=== PATIENT | male | born 1970 | race African-American/Black ===

== ENCOUNTER 2021-11-22 09:16 | Inpatient (IN) | payer SELFPAY ==
[~2021-11-22] VITALS: Ht 180.3 cm; Wt 101.2 kg
[~2021-11-22 09:16] MED LIST: CARAFATE 1GM1 G PO; NORCO 325 MG-51 TAB PO; PERCOCET 325 MG1 TAB PO; PHENERGAN 25 TA25 MG PO; ROXICODONE 55 MG/TAB PO
[2021-11-22 09:43] LABS: BASO % 0.4 % (0.0-2.0); EOS # 0.2 K/mm3 (0.0-0.7); EOS % 2.3 % (0.0-4.0); GRAN # 5.3 K/mm3 (1.4-6.5); GRAN % 63.6 % (42.2-75.2); HEMATOCRIT 45.6 % (42.0-52.0); HEMOGLOBIN 14.7 g/dl (13.5-18.0); LYMPH % 24.5 % (20.0-51.0); MEAN CELL VOLUME 89 fl (80.0-100.0); MEAN CORPUSCULAR HEMOGLOBIN 29 pg (27-31); MEAN CORPUSCULAR HGB CONC 32 g/dl (33.0-37.0); MEAN PLATELET VOLUME 9.3 fl (7.4-10.4); MONO # 0.8 K/mm3 (0.1-0.6); PLATELET COUNT 365 K/mm3 (130-400); RED BLOOD COUNT 5.14 M/mm3 (4.20-5.60); REDCELL DISTRIBUTION WIDTH-CV 14.3 % (11.5-14.5)
[2021-11-22 09:52] LABS: INR 1.3 (0.8-3.0); PROTHROMBIN TIME 14.1 SECONDS (9.7-12.8)
[2021-11-22 09:55] LABS: PARTIAL THROMBOPLASTIN TIME 33.2 SECONDS (26.0-37.0)
[2021-11-22 09:59] LABS: ALBUMIN 4.1 gm/dL (3.5-5.0); BILIRUBIN,TOTAL 0.4 mg/dL (0.2-1.2); C-REACTIVE PROTEIN 1.1 mg/dL (0.00-0.50); CALCIUM 8.8 mg/dL (8.4-10.2); CREATININE, serum 1.07 mg/dL (0.72-1.25); TOTAL PROTEIN 8.1 gm/dL (6.2-8.1)
[2021-11-22 10:05] LABS: TROPONIN-I 0.019 ng/mL (0.00-0.033)
[2021-11-22 11:31] LABS: COLLECTION METHOD CLEAN CATCH
[2021-11-22 11:37] LABS: MUCOUS Present (NOT PRESENT); PH 7 (5-8); SQUAMOUS EPITHELIAL None Seen /hpf (0-10); URINE APPEARANCE Clear (CLEAR/HAZY); URINE BACTERIA None Seen /hpf (NONE SEEN); URINE BILIRUBIN Negative (NEGATIVE); URINE BLOOD Negative (NEGATIVE); URINE COLOR Yellow (YELLOW); URINE GLUCOSE Negative (NEGATIVE); URINE KETONE Negative (NEGATIVE); URINE LEUKOCYTE ESTERASE Negative (NEGATIVE); URINE NITRATE Negative (NEGATIVE); URINE PROTEIN(semi-quant) Negative (NEGATIVE); URINE UROBILINOGEN Negative (NEGATIVE)
[2021-11-22 20:00] VITALS: BP 135/84; PULSE 82; TEMP 98.5
[2021-11-23] VITALS (509 sets, daily range): BP systolic 99–138; BP diastolic 57–100; PULSE 48–114; TEMP 98.3–99.4; O2SAT 36–100
--- NOTE | 2021-11-23 00:06 | NUR ---
NOTED IV HEPARIN RUNNNING AT 10ML/HR OR 1000 UNITS/HR, AND NITRO RUNNING AT 10MG/HR (3ML/HR)
[2021-11-23 06:39] LABS: CALCIUM 8.3 mg/dL (8.4-10.2); CREATININE, serum 0.89 mg/dL (0.72-1.25); MAGNESIUM 1.8 mg/dL (1.6-2.6); POTASSIUM 3.8 mmol/L (3.5-4.5)
[2021-11-23 06:50] LABS: TROPONIN-I 0.213 ng/mL (0.00-0.033)
--- NOTE | 2021-11-23 08:40 | NUR ---
SPOKE WITH DR. POP AND PT THIS AM. PLAN IS FOR PT TO HAVE AWA SCAN DONE THIS AFTERNOON; SCAN WILL DETERMINE IN CATH IS NEEDED OR NOT. PT NPO UNTIL AFTER SCAN. PT VERBALIZES UNDERSTANDING.
--- NOTE | 2021-11-23 09:36 | NUR ---
Initial visit; Patient thanked Cell Repairer for looking in on him and offering prayer and God's blessings. Cell Repairer will follow up.
--- NOTE | 2021-11-23 13:46 | NUR ---
PT BACK FROM NUCLEAR MED. TOLERATED SCAN WELL. REQUESTS TO ORDER LUNCH NOW. VITAL SIGNS STABLE.
--- NOTE | 2021-11-23 13:51 | NUR ---
S[employer]mill Relief Worker met with patient to discuss discharge planning. Patient lives in [place] with his uncle, Fernandez and reports he recently moved here from [place] about four months ago. Patient does not have a current primary care physician and is showing up as self pay on the census. Patient states he thinks he will be getting his Medicaid card soon. SW consulted Daniel Financial Counselor. Patient states he does not take any regular medications at this time. Patient does not use any DME and is independent with [employer]. Patient is not and reports he has eighteen children. SW discussed Advance Directives with patient and he would like to complete DPOA-HC form. SW assisted patient with completing form and patient chose to designate his son, Javier Ta (ph#[phone]). MONIKA and LARRY June witnessed the patient's signature. MONIKA provided original and copies to patient then placed copy in patient's chart. Discharge Plan: Home
--- NOTE | 2021-11-23 18:30 | NUR ---
Received report from LARRY June. Patient A&Ox4 on RA, VSS. Patient resting in bed watching tv. No concerns or complaints noted at this time from patient. Patient currently has heparin gtt running at 12.5mls/hr. Will resume care of patient at this time.
[2021-11-24] VITALS (121 sets, daily range): BP systolic 112–132; BP diastolic 58–92; PULSE 63–88; TEMP 98–98.7; O2SAT 74–100
--- NOTE | 2021-11-24 07:43 | NUR ---
RECEIVED BEDSIDE SHIFT REPORT FROM LARRY RAJAN. PATIENT IS RESTING IN BED ON HEPARIN GTT WITH EYES. CLOSED. VSS. HAS BEEN ASYMPTOMATIC ALL NIGHT. STILL USING URINAL TO VOID AND HAS 2 IV SITES.
[2021-11-24 08:21] LABS: HEMOGLOBIN 14.7 g/dl (13.5-18.0); MEAN CELL VOLUME 89 fl (80.0-100.0); MEAN CORPUSCULAR HEMOGLOBIN 28 pg (27-31); MEAN CORPUSCULAR HGB CONC 32 g/dl (33.0-37.0); MEAN PLATELET VOLUME 10.2 fl (7.4-10.4); PLATELET COUNT 347 K/mm3 (130-400); RED BLOOD COUNT 5.18 M/mm3 (4.20-5.60)
[2021-11-24] MEDS ORDERED: PROTONIX20 MG PO (09:43)
[2021-11-24] MEDS ORDERED: ASPIRIN 81M81 MG/TA2 PO (09:43)
[2021-11-24] MEDS ORDERED: LIPITOR20 MG PO (09:43)
[2021-11-24] MEDS ORDERED: NITROSTAT0.4 MG/TAB SL (09:44)
== END 2021-11-24 12:10 | disposition home or self-care (01) | DRG 313 ==
LOC: COL.ER 09:16 → IMCU 16:16
PROVIDERS: Family Medicine; Physician Assistant; ADMIT Internal Medicine
DX: R07.89 Other chest pain (principal); I10 Essential (primary) hypertension; K21.9 Gastro-esophageal reflux disease without esophagitis; F41.9 Anxiety disorder, unspecified; R10.9 Unspecified abdominal pain; G89.29 Other chronic pain; M54.9 Dorsalgia, unspecified; Z85.528 Personal history of other malignant neoplasm of kidney
CPT/HCPCS: 99223-AI; 99233-AI; 99239; A9500; C9113; J1644; J2270; J2785; J3360; J7030; J7120; Q9967